=== PATIENT | male | born 1930 | race Native Hawaiian/Other Pacific Islander ===

== ENCOUNTER 2018-02-08 14:06 | Emergency (ER) | payer MEDICARE, BC ==
[2018-02-08 14:25] VITALS: RESP 18; TEMP 98.5
--- NOTE | 2018-02-08 15:36 | ED ---
Lower Extremity Injury HPI - General Chief Complaint: Extremity Injury, Lower Stated Complaint: Back Pain Time Seen by Provider: 02/08/18 14:59 Source: patient Mode of arrival: ambulatory Limitations: no limitations - History of Present Illness Initial Comments: This a 87-year-old male past medical history of melanoma, murmur, hypertension, osteoporosis who presents today for chief complaint of right hip pain times years. Patient states that he has had right hip pain for years that has been worsening for the past 2 weeks the pain increases to a 10/10 when ambulate. He states that it is sharp in nature. Patient is able to fully weight-bear and ambulate. Patient denies any falls or trauma recently. Patient denies any redness of the overlying joint, or decreased range of motion. Patient denies any numbness, tingling, loss sensation, muscle weakness of the lower extremities , paresthesias, coolness of the extremity, pallor, swelling of the joint, fever , chills or night sweats . Pt does have an orthopedic surgeon that he follows Dr. Jeffrey however he states he is not doing anything for the hip pain. In addition upon review of systems patient does admit to mild low back pain. He states that there is no change in the low back pain. Patient denies any loss of bowel bladder control, urinary retention. He is prescribed Ultram for pain management from primary care physician, which she states is minimally helping. Remainder ROS (-). - Related Data Home Medications Medication Instructions Recorded Confirmed Lisinopril [Prinivil] 20 mg PO BID 01/13/15 01/13/15 amLODIPine [Norvasc] 10 mg PO DAILY 01/13/15 01/13/15 Allergies Allergy/AdvReac Type Severity Reaction Status Date / Time No Known Allergies Allergy Verified 02/08/18 14:25 Review of Systems ROS Statement: Those systems with pertinent positive or pertinent negative responses have been documented in the HPI. ROS Other: All systems not noted in ROS Statement are negative. Constitutional: Denies: fever, chills Eyes: Denies: vision change ENT: Denies: ear pain, throat pain Respiratory: Denies: cough, dyspnea Cardiovascular: Denies: chest pain, palpitations Gastrointestinal: Denies: abdominal pain, nausea, vomiting, diarrhea, constipation Genitourinary: Denies: urgency, dysuria, frequency, hematuria Musculoskeletal: Reports: back pain, arthralgia. Denies: joint swelling, myalgia Skin: Denies: rash, lesions Neurological: Denies: headache, weakness, numbness, paresthesias, confusion, abnormal gait Past Medical History Past Medical History: Cancer, COPD, Eye Disorder, Hypertension Additional Past Medical History / Comment(s): heart murmer. , melanoma,- SEVERAL SPOTS TO FACE ONGOING. rectal cancer-. MACULAR DEGENERATION History of Any Multi-Drug Resistant Organisms: None Reported Past Surgical History: Appendectomy, Bowel Resection, Cholecystectomy, Orthopedic Surgery Additional Past Surgical History / Comment(s): left rotator cuff,. valerie arthroscopic knee. ,left cataract,. colostomy/reversal. COLONOSCOPY Past Anesthesia/Blood Transfusion Reactions: No Reported Reaction Smoking Status: Former smoker - Past Family History Mother Family Medical History: No Reported History General Exam - General Exam Comments Initial Comments: General: The patient is awake and alert, in no distress, and does not appear acutely ill. Eye: Pupils are equal, round and reactive to light, extra-ocular movements are intact. No nystagmus. There is normal conjunctiva bilaterally. No signs of icterus. Cardiovascular: There is a regular rate and rhythm. No murmur, rub or gallop is appreciated. Respiratory: Lungs are clear to auscultation, respirations are non-labored, breath sounds are equal. No wheezes, stridor, rales, or rhonchi. Musculoskeletal: Upon inspection of the right hip there is no obvious defects, no overlying erythema or swelling. There are no rashes or ecchymosis. Pt able to forward flex, hyperextend at the lumbar spine with mild discomfort. (+) SLR b /l. R>L. Patient has no tenderness midline to palpation of the lumbar spine. However he admits to paravertebral tenderness. Patient is able to fully range at the right hip without difficulty, including flexion, extension, internal and external rotation he complains of pain with these movements. Patient has full strength at the thigh hip, knee and ankle of the lower extremities equally bilaterally. No evidence of weakness. No pain with log roll of legs b/l, pelvic compression. Sensation intact of the lower extremities from the hip to the toes patient states this is equal, no saddle paresthesias. DP pulses equal bilaterally 2+. +2 out of 5 deep tendon reflexes, no evidence of fasciculations or myoclonus. Neurological: A&O x 3. CN II-XII intact, There are no obvious motor or sensory deficits. Coordination appears grossly intact. Speech is normal. Skin: Skin is warm and dry and no rashes or lesions are noted. Psychiatric: Cooperative, appropriate mood & affect, normal judgment. Limitations: no limitations Course Vital Signs 02/08/18 14:23 Temperature 98.5 F Pulse Rate 60 Respiratory 18 Rate Blood Pressure 129/71 O2 Sat by Pulse 96 Oximetry Medical Decision Making - Medical Decision Making 87yo male with atraumatic right hip and low back pain. Pt has extensive history of osteoarthritis according to his . Patient states that he has had this low back pain and right leg pain for years however isn't worsening for the past 2 weeks. Patient has no signs of cauda equina or neurovascular, otherwise at this time. I observe patient walking to the bathroom, he ambulated without difficulty. He is weightbearing on his right hip. X-rays the right hip and pelvis were obtained revealing no evidence suspicious for fracture or dislocation. No noted osteophytes. I was suspicious of a lumbar radiculopathy causing the right hip pain since or x-ray of the lumbar spine. This revealed Anterolisthesis L4-L5. L5-S1, and there is moderate to severe narrowing at L3 through L4. No compression fracture seen. At this time I feel that the patient 's right hip pain is radicular in nature. Case discussed with Dr. Diehl. We feel patient benefit from orthopedic surgery follow-up. Patient was instructed to continue taking his tramadol as prescribed by primary care provider. For pain management. Patient was educated on treatment of low back pain as well as the signs and symptoms of cauda equina. It was stressed the patient if he experiences any of the symptoms he is to return to emergency department, both patient and verbally confirmed understanding. Both patient and deny questions at this time. Patient discharged in stable condition. Disposition Clinical Impression: Radicular pain of right lower extremity, Acute exacerbation of chronic low back pain, Right hip pain Disposition: HOME SELF-CARE Condition: Good Instructions: Lumbar Radiculopathy (ED) Additional Instructions: Please use medication as discussed. Please follow-up with orthopedic surgery in the next 1-2 days. Please return to emergency room if the symptoms increase or worsen or for any other concerns, as discussed. Is patient prescribed a controlled substance at d/c from ED?: No Referrals: Dom Sy DO [Primary Care Provider] - 1-2 days Speedy Rodríguez MD [STAFF PHYSICIAN] - 1-2 days Time of Disposition: 16:48
[2018-02-08] MEDS ORDERED: IBUPROFEN 600 MG TAB PO STA (16:07)
--- NOTE | 2018-02-08 16:14 | XR ---
EXAMINATION TYPE: XR Hip RT and AP Pelvis DATE OF EXAM: 02/08/2018 CLINICAL HISTORY: Pelvic and right hip pain. TECHNIQUE: A single AP view of the pelvis is obtained. Two views of the right hip are obtained. COMPARISON: None. FINDINGS: There is no acute fracture/dislocation evident in the pelvis. The hip and sacroiliac joints appear s ymmetric and unremarkable. The overlying soft tissue appears unremarkable.Two views of right hip mitch w no acute fracture or dislocation. No focal lytic or sclerotic lesion seen in the proximal right fe mur. The overlying soft tissue is unremarkable. IMPRESSION: There is no acute fracture or dislocation in the pelvis or right hip.
[2018-02-08] MEDS ORDERED: ACETAMINOPHEN TAB 325 MG TAB PO STA (16:20)
--- NOTE | 2018-02-08 16:22 | XR ---
EXAMINATION TYPE: XR lumbar spine 2 or 3V DATE OF EXAM: 02/08/2018 CLINICAL HISTORY: pain TECHNIQUE: Three views of the lumbar spine are submitted. COMPARISON: None. FINDINGS: There is grade 2 anterolisthesis L5 on S1 related to bilateral spondylolysis. Grade 1 anterolisthesis L4 and L5 measuring 4.4 mm related to severe facet joint arthropathy. There is a moderate to severe narrowing at the L3-4 through L5-S1. No compression fractures are seen. IMPRESSION: Anterolisthesis L4-5 and L5-S1 as discussed. L5-S1 spondylolysis.
[2018-02-08 17:01] VITALS: BP 156/74; PULSE 57
== END 2018-02-08 16:59 | disposition home or self-care (01) ==
LOC: EC 14:06
DX: M54.5 Low back pain (principal); G89.29 Other chronic pain; M25.551 Pain in right hip; M43.17 Spondylolisthesis, lumbosacral region; I10 Essential (primary) hypertension; Z85.820 Personal history of malignant melanoma of skin; Z87.891 Personal history of nicotine dependence; Z79.899 Other long term (current) drug therapy; Z96.653 Presence of artificial knee joint, bilateral; Z53.29 Procedure and treatment not carried out because of patient's decision for other reasons
CPT/HCPCS: 72100; 73502; 99283